=== PATIENT | male | born 1960 | race Caucasian/White ===

== ENCOUNTER 2018-10-18 09:33 | Inpatient (IN) | payer BC ==
[2018-10-18 11:41] LABS: Troponin I Less than 0.010 ng/mL (< 0.028)
[2018-10-18] MEDS ORDERED: Guaifenesin DM 100-10/5 ML UDCUP PO PRN (13:24)
[2018-10-18] MEDS ORDERED: Acetaminophen 325 MG TAB PO PRN (13:24)
[2018-10-18] MEDS ORDERED: Diltiazem 125 MG in Sodium Chloride 0.9% 100 ML IVPB SCH (13:30)
[2018-10-18] MEDS: Furosemide 40 MG/4 ML VIAL SLOW IVP SCH (13:56)
[2018-10-18 14:02] LABS: Troponin I Less than 0.010 ng/mL (< 0.028)
[2018-10-18 14:03] VITALS: BMI 44.1
[2018-10-18 14:26] LABS: Hemoglobin A1c 5.3 % (4.0-6.0)
[2018-10-18 14:27] LABS: INR-International Normal Ratio 1.2; Prothrombin Time 15.1 SEC (12.0-14.7)
[2018-10-18 15:22] LABS: Folate (Folic Acid) 10.5 ng/mL (7.0-31.4)
[2018-10-18] MEDS ORDERED: Prevnar 13-Val Conj/PF 0.5 ML SYRINGE IM ONE (15:30)
--- NOTE | 2018-10-18 17:10 | HP ---
REASON FOR ADMISSION: Atrial fibrillation with rapid ventricular response, CHF exacerbation. HISTORY OF PRESENT ILLNESS: Patient gives history of shortness of breath from last Friday. He has been feeling bad. He initially thought it was a peanut allergy. He also has orthopnea. No complain ts of chest pain, palpitations or PND. He initially went to [facility] where he was fou nd to be in atrial fibrillation with RVR and was given 20 mg of Cardizem IV and was placed on a drip and transferred here. Patient never had cardiac workup before. No history of bleeding per rectum. He has some dry cough, but no expectoration. PAST MEDICAL AND SURGICAL HISTORY: Hypertension, obesity, GERD, no prior surgery. No cardiac workup . No prior colonoscopy. CURRENT MEDICATIONS: Patient is on aspirin 81 mg p.o. daily, lisinopril 20 mg daily, metoprolol 100 mg twice daily, Prilosec 20 mg p.r.n. ALLERGIES: CODEINE, likely PEANUT. PERSONAL HISTORY: Dips snuff. Drinks 4-5 beers on a daily basis. Does not abuse drugs. Lives with his . FAMILY HISTORY: Mother at the age of 68 years. She has had history of throat cancer. Father d ied at the age of 73 years. He has had history of lung cancer, both were smokers. CODE STATUS: FULL. 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 REVIEW OF SYSTEMS: The following complete review of systems was negative, unless otherwise mentioned in the HPI or below: Constitutional: Weight loss or gain, ability to conduct usual activities. Sk in: Rash, itching. Eyes: Double vision, pain. ENT/Mouth: Nose bleeding, neck stiffness, pain, te nderness. Cardiovascular: Palpitations, dyspnea on exertion, orthopnea. Respiratory: Shortness of breath, wheezing, cough, hemoptysis, fever or night sweats. Gastrointestinal: Poor appetite, abdom inal pain, heartburn, nausea, vomiting, constipation, or diarrhea. Genitourinary: Urgency, frequenc y, dysuria, nocturia. Musculoskeletal: Pain, swelling. Neurologic/Psychiatric: Anxiety, depressio n. Allergy/Immunologic: Skin rash, bleeding tendency. PHYSICAL EXAMINATION: GENERAL: The patient is a 58-year-old male who is currently not in any acute distress. VITAL SIGNS: Blood pressure 112/80, pulse is 100 per minute, respiratory rate is 20 per minute, temp erature 97.7 degrees Fahrenheit, saturating 95% on room air. NECK: Supple, no elevated JVD. HEENT: Extraocular muscles intact. Pupils reacting to light. Oral cavity, mucous membranes are khoi st. No exudates or congestion. CARDIOVASCULAR: S1, S2 heard. Irregular rhythm. RESPIRATORY: Air entry 1+ bilateral. Scattered rales plus in the infrascapular area. ABDOMEN: Soft, bowel sounds heard. No tenderness, rigidity or guarding. EXTREMITIES: There is chronic edema likely venous stasis edema which the patient states is not new. Peripheral pulses are 1+ bilateral, no ischemic ulcerations or gangrene. CENTRAL NERVOUS SYSTEM: No gross focal deficits noted. Patient is alert, awake, and oriented well. He is hard of hearing in the right ear. PSYCHIATRIC: The patient's mood is euthymic. No hallucinations or delusions. LABORATORY AND X-RAY FINDINGS: EKG done shows atrial fibrillation with RVR at 132 beats per minute. There are nonspecific ST-T wave changes. White count of 9, H&H 16 and 51, platelet count is 234, MC V is 95 with 65% neutrophils. D-dimer is 0.7. Electrolytes are stable, BUN 17, creatinine 1.25. Se rum glucose 121, AST 36, ALT 31, total bilirubin 0.8. CK-MB 1.4. Troponin x2 negative. Albumin is 4.0. BNP is 801. CT angio chest done shows no PE. There is pulmonary vascular congestion. CLINICAL IMPRESSION AND PLAN: Patient will be admitted to telemetry for atrial fibrillation with rap id ventricular response, new onset, new-onset congestive heart failure exacerbation. He is currently on Cardizem drip at 10 mg an hour and will continue the same for now. He will be on full dose aspir in along with home dose of Lopressor 100 mg twice daily. His lisinopril will be reduced to 2.5 mg da laura to accommodate for diuresis. Patient will be on Lasix 40 mg IV q.12 hours. Echo with 2D Doppler for LV function will be obtained. His serum glucose is 120 and we will obtain a HbA1c. We will con sult Dr. Cornejo, who is furnace combustion analyst for Cardiology. Patient has never had colonoscopy before and does not have any history of bleeding per rectum. We will obtain a PT, INR and PTT for baseline if patient we re to go on anticoagulation.
[2018-10-18] MEDS: Famotidine 20 MG TAB PO SCH (20:58)
[2018-10-18] MEDS: Metoprolol Tartrate 100 MG TAB PO SCH (20:58)
--- NOTE | 2018-10-18 23:14 | CON ---
DATE OF CONSULTATION: 10/18/2018 DATE OF ADMISSION: 10/18/2018 INDICATION FOR CONSULTATION: A 58-year-old patient with new-onset atrial fibrillation, congestive heart failure symptoms. HISTORY OF PRESENT ILLNESS: This is a very pleasant 58-year-old gentleman who has had no previous cardiac history, has been very healthy patient despite being morbidly obese. He remains very active. He does have a history of hypertension, but no history of hypercholesterolemia, diabetes, or tobacco abuse. He has no early family history of heart disease in his family. He has been short of breath since Friday. 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 He does have orthopnea, he sleeps on 2 pillows. He had an echocardiogram today, which showed ejection fraction to be well preserved. Ejection fraction was 50% to 55%. The left atrium is at least moderately-to- severely dilated. The left atrium was up to, I believe, 4.97. He had trace TR and mild MR. There is a consideration of possible diastolic dysfunction, but difficult to assess with the atrial fibrillation. His CHADS-VASc2 score is equal to about 2. If one considers the congestive heart failure, which appears to be new onset. His chest x-ray did show some indication that he may have some congestive heart failure, but when he arrived to the emergency room, he was having atrial fibrillation with rapid ventricular response, which may have exacerbated or may have provoked him to have congestive heart failure. Otherwise, his only score would be 1 based on his hypertension. PAST MEDICAL HISTORY: Otherwise unremarkable. He denied any chest pain. He does have occasional indigestion, for which he takes Prilosec and he has hypertension. SOCIAL HISTORY: He has one child who is alive and well without heart disease. He is . He has no tobacco abuse. He drinks 4-5 beers a day and more on the weekend, also uses increased amounts of caffeine. FAMILY HISTORY: Both of his parents from throat or lung cancer. They were both smokers. ALLERGIES: He has some intolerance to CODEINE and he has possible allergy to PEANUTS. REVIEW OF SYSTEMS: Twelve-point review of systems unremarkable except for occasional edema of the feet. Otherwise, unremarkable except what was noted in the history of present illness. PHYSICAL EXAMINATION: GENERAL: Reveals an obese gentleman who weighs 317 pounds with a BMI of 44. VITAL SIGNS: His blood pressure earlier was 154/90, now is 123/69, heart rate is 109 and it occasionally drips down into the 90s. HEENT: Shows head to be normocephalic and atraumatic. Carotid pulses are present. I did not hear any bruits. CHEST: Clear to auscultation without rales, rhonchi, or wheezing. CARDIOVASCULAR: I did not hear any significant murmurs, heaves, thrills, bruits , or rubs. Heart sounds are somewhat distant may be due to the obesity of the patient, but appears to have no clear S1 or S2, but this is due to the atrial fibrillation with a regular rhythm. ABDOMEN: Shows morbid obesity. I cannot palpate any masses or tenderness. Femoral pulses are present. EXTREMITIES: Showed no clubbing or cyanosis. He had minimal perhaps 1+ edema of the lower extremities. Pedal pulses are present, but are somewhat decreased. EKG shows atrial fibrillation with rapid ventricular response, but no acute ST segment changes. As noted above, his echocardiogram shows a normal ejection fraction, but left atrium was 4.97. At this time, he is on Lasix and IV diltiazem and has been given Lovenox. IMPRESSION: 1. Atrial fibrillation with rapid ventricular response, which is may be a new- onset. We are uncertain as the duration of one just actually started, may discuss this case with Dr. Montez. If he has had any previous evaluations in the office recently or had an EKG that would verify perhaps sinus rhythm. At this time, we will continue the diltiazem, we will need to try to speak an etiology of the atrial fibrillation. I have discussed this with the patient, it could be due to increased alcohol use, increased caffeine, occasionally he may have sleep apnea which could have provoked this also. Increased stress or fatigue may also cause atrial fibrillation, most likely is due to his increased alcohol use. He drinks at least 4-5 beers per day. 2. Obesity. He and his are both need to undergo diet restrictions and he agrees to do this. 3. History of hypertension. I will need to readjust his medications. I would agree with the beta blockers and MARY inhibitors in this gentleman. 4. Elevated blood sugar. His laboratory data show blood sugar of 121; however , hemoglobin A1c was normal. 5. Mild congestive heart failure. He has been given IV Lasix, and I suspect he will diurese. We will have no further issues as long as we can control the heart rate and the blood pressure. 6. ETOH abuse and he has been advised to cut back on his alcohol use. 7. Possible sleep apnea. He may need to undergo a sleep study as an outpatient and if so, then a CPAP mask would be in order. At this time, we will continue the medication and see how he is tomorrow. He will need to undergo some type of stress testing either as an inpatient or later, but first we will need to control the heart rate as well as the blood pressure. We will discuss his case also with building contractor, he may be a candidate to undergo ablation of the atrial fibrillation. JUANJO
[2018-10-19] MEDS: Furosemide 40 MG/4 ML VIAL SLOW IVP SCH ×2 (05:17→18:35)
[2018-10-19 05:51] LABS: Anion Gap 15 mmol/L (10-20); BUN (Urea Nitrogen) 18 mg/dL (8.4-25.7); Calc. Creatinine Clearance 167 mL/min (70-130); Calcium 9.2 mg/dL (7.8-10.44); Carbon Dioxide 25 mmol/L (22-29); Chloride 99 mmol/L (98-107); Estimated GFR-MDRD 82; Glucose 103 mg/dL (70-105); Sodium 135 mmol/L (136-145)
[2018-10-19 06:12] LABS: Hemoglobin 15.2 g/dL (14.0-18.0); Lymphocytes 33 % (21-51); MDiff Complete? YES; Mean Corpuscular HGB CONC 32.9 g/dL (32.0-36.0); Mean Corpuscular Hemoglobin 31.4 pg (27.0-31.0); Mean Corpuscular Volume 95.2 fL (78.0-98.0); Mean Platelet Volume 9.1 fL (7.4-10.4); Monocytes 11 % (0-10); Neutrophil 56 % (42-75); PLT Morphology Comment Appears Adequate; Platelet Count 194 thou/uL (130-400); RBC Distribution Width 12.3 % (11.5-14.5); RBC Morphology Normal; Red Blood Cell (RBC) Count 4.85 mill/uL (4.70-6.10); White Blood Cell (WBC) Count 5.7 thou/uL (4.8-10.8)
[2018-10-19] MEDS ORDERED: Aspirin 325 MG TAB PO SCH (09:00)
[2018-10-19] MEDS ORDERED: Enoxaparin Sodium 40 MG/0.4 ML SYRINGE SC SCH (09:00)
[2018-10-19] MEDS ORDERED: Lisinopril 2.5 MG TAB PO SCH (09:00)
[2018-10-19] MEDS: Lisinopril 20 MG TAB PO SCH (09:37)
[2018-10-19] MEDS: Metoprolol Tartrate 100 MG TAB PO SCH ×2 (09:38→20:49)
[2018-10-19] MEDS: Famotidine 20 MG TAB PO SCH ×2 (09:38→20:48)
--- NOTE | 2018-10-19 11:12 | CON ---
DATE OF CONSULTATION: 10/19/2018 REFERRING PHYSICIAN: Dr. Lolita Cornejo REASON FOR CONSULTATION: New onset atrial fibrillation with rapid ventricular response. HISTORY OF PRESENT ILLNESS: Mr. Arriola is a very pleasant 58-year-old gentleman who recently presented to the emergency room at [facility] and was found to be in atrial fibrillation with RVR. He has been having shortness of breath since Friday. Otherwise, he has a fairly unremarkable past medical history. He is being treated for hypertension, but denies any prior history of diabetes, tobacco use, cholesterol issues. He is morbidly obese, but continues to lead a very active lifestyle and works part time flexible clerk. He has no history of heart failure, but was found to be in mild congestive heart failure upon presentation, likely tachycardia mediated. His ejection fraction is preserved at 50-55%, but the left atrium shows moderate to severe dilation. Since he was admitted Cardiology was consulted and he was placed on a diltiazem drip for rate control with good success. Currently, Mr. Arriola is feeling well. He denies any heart racing, palpitations, chest pain or pressure, syncope, near syncope, stroke, stroke- like symptoms. His shortness of breath is relieved with his rate control. Otherwise, he is feeling well today. PAST MEDICAL HISTORY: 1. Hypertension. 2. Dyspepsia. 3. Alcohol consumption, borderline alcohol abuse. 4. Morbid obesity. REVIEW OF SYSTEMS: A 12-point review of systems was conducted and is otherwise unremarkable except that listed above in the HPI. HOME MEDICATIONS: Toprol-XL 100 mg p.o. daily and lisinopril 20 mg p.o. daily. SOCIAL HISTORY: , has 1 child. Denies tobacco or drug use. Positive for alcohol consumption of 4-5 beers a day during the week with higher levels on the weekend. FAMILY HISTORY: Both parents passed from throat or lung cancer and both smoked. Negative for sudden cardiac or early onset coronary artery disease. ALLERGIES: Possible allergy to PEANUTS, intolerant of CODEINE. OBJECTIVE: VITAL SIGNS: Temperature 98.3, pulse 72, blood pressure 129/79, respirations 16 , oxygen is 95% on room air. GENERAL: Mr. Arriola is well groomed, morbidly obese, alert, and oriented. Speech is clear. Affect is appropriate. BMI of 44. HEENT: Normocephalic, atraumatic. NECK: Thyroid is nonpalpable. Jugular venous distention is difficult to assess with his habitus. PULMONARY: Lungs are clear to auscultation bilaterally without wheezes, crackles or rhonchi. Respirations are even and unlabored with good bilateral excursion. CARDIOVASCULAR: Heart rate is irregularly irregular, but with a controlled rate. No significant murmur, rubs or gallops are appreciated. GASTROINTESTINAL: The abdomen is soft, nontender, morbidly obese. There are no palpable masses. Hepatojugular reflex is negative. EXTREMITIES: Warm and dry to touch without clubbing or cyanosis. Trace bilateral edema seen. NEUROLOGIC: Grossly intact. Cranial nerves II-XII nonfocal. Gait was not assessed. DATABASE: EKG and telemetry were all personally reviewed and reflect currently atrial fibrillation with controlled ventricular rates between 70 and 100. Initial presenting EKG is an atypical atrial flutter, mostly with 2:1 AV conduction, but variable at times. Ventricular rate is 132 beats per minute. Echocardiogram: EF 50-55%, probable diastolic dysfunction, moderate to severely dilated left atrium. Hematology is reviewed and unremarkable. Chemistry is reviewed and is unremarkable. Creatinine is 0.94. TSH 1.7. IMPRESSION: 1. Newly diagnosed atrial fibrillation with rapid ventricular rate. 2. Morbid obesity with a BMI of 44. 3. High level of alcohol intake. 4. Morbid obesity. 5. CHADS-VASc score of 1 (2 if his tachycardia mediated congestive heart failure is included in his score which should resolve with rate control and gentle diuresing). 6. Hypertension. ASSESSMENT AND PLAN: Mr. Arriola presents with newly found atrial arrhythmias with rapid ventricular response. This is likely multifactorial as he has many risk factors present that are unknown provoking factors of atrial fibrillation. He is morbidly obese. He suffers from moderate to poorly controlled high blood pressure, and also likely has undiagnosed sleep apnea. On top of that, his alcohol consumption is quite high, which is also a known provoking factor of cardiac arrhythmias. At this point, I recommend a short course of oral anticoagulation until the DEWAYNE and cardioversion is done. An outpatient monitor could be given to assess for subclinical atrial fibrillation. With a CHADS VAS score of 1 only aspirin would be required once sinus rhythm is restored. Recommend rate control strategy now with AV jayden blocking agents and consider antiarrhythmic therapy versus a PVAI if recurrence is seen. Most importantly, though will be lifestyle modifications for him. Weight loss would be imperative for him and helping control any future atrial arrhythmias. We agree with the recommendation to undergo sleep study for undiagnosed sleep apnea and also a tight control of his high blood pressure. Thank you for allowing us to participate in the care of this patient. JUANJO
--- NOTE | 2018-10-19 11:51 | PDOC.CTH ---
<Meli Beltran - Last Filed: 10/19/18 11:49> Cardiology Progress Note - Subjective The pt seen and examined. No overnight events. No cardiac complaints. - Objective Vital Signs Temp Pulse Pulse Pulse Resp BP BP 10/19/18 10:34 91 93 123/72 156/96 H 10/19/18 07:10 98.3 F 72 16 10/19/18 04:15 10/19/18 03:50 97.3 F L 94 16 10/19/18 00:15 98.1 F 79 16 BP BP Pulse Ox 10/19/18 10:34 10/19/18 07:10 129/79 95 10/19/18 04:15 96 10/19/18 03:50 113/64 96 10/19/18 00:15 119/76 95 Weight 311 lb 14.4 oz 10/18/18 10/19/18 10/20/18 06:59 06:59 06:59 Intake Total 1370 Output Total 2650 Balance -1280 - Physical Examination General/Neuro: alert & oriented x3 Neck: no JVD present Lungs: CTA Heart: other: (irregular) Abdomen: soft Extremities: other: (2+ pitting edema with discoloration) - Labs Result Diagrams: 10/19/18 05:03 10/19/18 05:03 Troponin/CKMB Troponin I Less than 0.010 ng/mL (< 0.028) 10/18/18 13:28 - Assessment/Plan 1. New on set AFib with RVR - HR well controlled with Cardizem 10mg/h, Metoprolol and ASA 325mg qd; Plan for DEWAYNE/Cardioversion today by Dr Cornejo. 2. New on set of Diastloic HF - Echo on 10/18/18 showed EF 50-55%, Diastolic dysfunction, mod dilated LA, mild ERA, mild MR, trace TR; On Lisinopril, Metoprolol and Lasix IV 40mg BID 3. HTN - stable 4. GERD - stable 5. Obese - weight management with diet and regular exercise education given to the pt and family 6. ETOH abuse (4-6 beers/day) - ETOH cessation education given to the pt and family 7. Tobacco abuse with dipping - Tobacco cessation education given to the pt and family * Plan for DEWAYNE/DCCV today by Dr Cornejo. Review of Systems - Review of Systems Constitutional: reports: no symptoms reported EENTM: reports: no symptoms reported Respiratory: reports: no symptoms reported Cardiac (ROS): reports: no symptoms reported ABD/GI: reports: no symptoms reported : reports: no symptoms reported Musculoskeletal: reports: no symptoms reported <Bladimir Cornejo - Last Filed: 10/19/18 16:47> Cardiology Progress Note - Objective Vital Signs Temp Pulse Pulse Pulse Resp BP BP 10/19/18 11:57 98.1 F 74 18 10/19/18 10:34 91 93 123/72 156/96 H 10/19/18 07:10 98.3 F 72 16 BP Pulse Ox 10/19/18 11:57 130/85 95 10/19/18 10:34 10/19/18 07:10 129/79 95 Weight 311 lb 14.4 oz 10/18/18 10/19/18 10/20/18 06:59 06:59 06:59 Intake Total 1370 Output Total 2650 Balance -1280 - Labs Result Diagrams: 10/19/18 05:03 10/19/18 05:03 Troponin/CKMB Troponin I Less than 0.010 ng/mL (< 0.028) 10/18/18 13:28 - Assessment/Plan Pt. seen and eval. by me. Discussed his case with EP. Plan for DEWAYNE/ cardioversion if no YUSEF thrombus is present.
--- NOTE | 2018-10-19 12:19 | PDOC.PN ---
- Subjective Encounter Start Date: 10/19/18 Encounter Start Time: 09:40 Subjective: no sob or chest pain -: feels better -: and son at bedside - Objective Resuscitation Status: Resuscitation Status FULL:Full Resuscitation MAR Reviewed: Yes Vital Signs & Weight: Vital Signs (12 hours) Temp Pulse Pulse Pulse Resp BP BP 10/19/18 11:57 98.1 F 74 18 10/19/18 10:34 91 93 123/72 156/96 H 10/19/18 07:10 98.3 F 72 16 10/19/18 04:15 10/19/18 03:50 97.3 F L 94 16 BP BP Pulse Ox 10/19/18 11:57 130/85 95 10/19/18 10:34 10/19/18 07:10 129/79 95 10/19/18 04:15 96 10/19/18 03:50 113/64 96 Weight Weight 311 lb 14.4 oz I&O: 10/18/18 10/19/18 10/20/18 06:59 06:59 06:59 Intake Total 1370 Output Total 2650 Balance -1280 Result Diagrams: 10/19/18 05:03 10/19/18 05:03 Phys Exam - Physical Examination HEENT: PERRLA, moist MMs Neck: no JVD, supple Respiratory: no wheezing, no rales Cardiovascular: no significant murmur, irregular Gastrointestinal: soft, non-tender, positive bowel sounds Musculoskeletal: pulses present, edema present Neurological: non-focal, moves all 4 limbs Psychiatric: normal affect, A&O x 3 Dx/Plan (1) Atrial fibrillation with RVR Code(s): I48.91 - UNSPECIFIED ATRIAL FIBRILLATION Status: Acute (2) Acute exacerbation of CHF (congestive heart failure) Code(s): I50.9 - HEART FAILURE, UNSPECIFIED Status: Acute Qualifiers: Heart failure type: diastolic Qualified Code(s): I50.33 - Acute on chronic diastolic (congestive) heart failure Comment: ef of 55%, NYHA class 2 (3) HTN (hypertension) Code(s): I10 - ESSENTIAL (PRIMARY) HYPERTENSION Status: Chronic Qualifiers: Hypertension type: essential hypertension Qualified Code(s): I10 - Essential (primary) hypertension (4) Obesity Code(s): E66.9 - OBESITY, UNSPECIFIED Status: Chronic Qualifiers: Obesity classification: adult class 3 (BMI >= 40) Body mass index: BMI 40.0 -44.9 (5) Alcohol abuse Code(s): F10.10 - ALCOHOL ABUSE, UNCOMPLICATED Status: Chronic - Plan is on cardizem drip @10mg/hr -: lopressor 100mg bid, asp -: plan is for cardioversion and DEWAYNE today, is npo -: d/w , son and patient at bedside -: ef of 55% with diastolic dysfunction, LE edema is better * . Review of Systems - Medications/Allergies Allergies/Adverse Reactions: Allergies Allergy/AdvReac Type Severity Reaction Status Date / Time codeine Allergy Intermediate Verified 10/18/18 14:27 Medications: Current Medications Acetaminophen (Tylenol) 650 mg PO Q4H PRN PRN Reason: Headache/Fever/Mild Pain (1-3) Aspirin (Aspirin) 325 mg PO DAILY [facility] Enoxaparin Sodium (Lovenox) 40 mg SC 0900 [facility] Famotidine (Pepcid) 20 mg PO BID [facility] Last Admin: 10/19/18 09:38 Dose: 20 mg Furosemide (Lasix) 40 mg SLOW IVP 0600,1400 [facility] Last Admin: 10/19/18 05:17 Dose: 40 mg Guaifenesin/Dextromethorphan (Robitussin Dm) 15 ml PO Q4H PRN PRN Reason: Cough Diltiazem HCl 125 mg/ Sodium (Chloride) 125 mls @ 10 mls/hr IVPB INF [facility]; Protocol Last Admin: 10/19/18 04:14 Dose: 125 mls Lisinopril (Zestril) 20 mg PO DAILY [facility] Last Admin: 10/19/18 09:37 Dose: 20 mg Metoprolol Tartrate (Lopressor) 100 mg PO BID [facility] Last Admin: 10/19/18 09:38 Dose: 100 mg Sodium Chloride (Flush - Normal Saline) 10 ml IVF PRN PRN PRN Reason: Saline Flush Last Admin: 10/19/18 05:20 Dose: 10 ml
[2018-10-19] MEDS ORDERED: PROPOFOL 200 MG/20 ML VIAL ONE (13:46)
[2018-10-19] MEDS ORDERED: PROPOFOL 20 ML ONE (16:55)
[2018-10-19] MEDS ORDERED: Atropine Sulfate 1 mg/10 ml Syringe ONE (16:55)
[2018-10-19] MEDS ORDERED: Midazolam HCl 2 mg/2 ml Vial ONE (17:02)
[2018-10-19] MEDS: Apixaban 5 MG TAB PO SCH (20:48)
[2018-10-19] MEDS ORDERED: Diltiazem HCl 125 MG, Admixture Fee 1 EACH in Sodium Chloride 0.9% 100 ML IVPB SCH (23:45)
[2018-10-20] MEDS: Furosemide 40 MG/4 ML VIAL SLOW IVP SCH (05:37)
[2018-10-20 05:38] LABS: Anion Gap 16 mmol/L (10-20); BUN (Urea Nitrogen) 17 mg/dL (8.4-25.7); Calc. Creatinine Clearance 157 mL/min (70-130); Calcium 9.5 mg/dL (7.8-10.44); Carbon Dioxide 26 mmol/L (22-29); Cardiac Risk 4.7 (Less than 4.5); Chloride 99 mmol/L (98-107); Cholesterol 127 mg/dl (< 200 Desired); Estimated GFR-MDRD 76; Glucose 104 mg/dL (70-105); HDL Cholesterol 27 mg/dL (>60 Neg Risk); LDL Cholesterol, Calculated 84 mg/dL; Sodium 137 mmol/L (136-145); Triglycerides 78 mg/dL (Less than 150)
[2018-10-20 05:45] LABS: Hemoglobin 15.2 g/dL (14.0-18.0); Mean Corpuscular HGB CONC 33.1 g/dL (32.0-36.0); Mean Corpuscular Hemoglobin 31.4 pg (27.0-31.0); Mean Platelet Volume 8.8 fL (7.4-10.4); Platelet Count 219 thou/uL (130-400); RBC Distribution Width 12.1 % (11.5-14.5); Red Blood Cell (RBC) Count 4.84 mill/uL (4.70-6.10); White Blood Cell (WBC) Count 5.5 thou/uL (4.8-10.8)
[2018-10-20 05:46] LABS: Band 2 % (5-11); Lymphocytes 29 % (21-51); MDiff Complete? YES; Monocytes 14 % (0-10); Neutrophil 53 % (42-75); PLT Morphology Comment Appears Adequate
[2018-10-20] MEDS: Apixaban 5 MG TAB PO SCH ×2 (09:17→21:00)
[2018-10-20] MEDS: Metoprolol Tartrate 100 MG TAB PO SCH ×2 (09:17→21:00)
[2018-10-20] MEDS: Famotidine 20 MG TAB PO SCH ×2 (09:17→21:00)
[2018-10-20] MEDS: Lisinopril 20 MG TAB PO SCH (09:17)
[2018-10-20] MEDS ORDERED: Diltiazem HCl 125 MG, Admixture Fee 1 EACH in Sodium Chloride 0.9% 100 ML IVPB SCH (09:38)
--- NOTE | 2018-10-20 11:30 | PDOC.PN ---
- Subjective Encounter Start Date: 10/20/18 Encounter Start Time: 09:20 Subjective: no sob/chest pain or palp -: is on cardizem drip - Objective Resuscitation Status: Resuscitation Status FULL:Full Resuscitation MAR Reviewed: Yes Vital Signs & Weight: Vital Signs (12 hours) Temp Pulse Resp BP BP BP BP 10/20/18 09:17 136/103 H 10/20/18 07:40 97.6 F 110 H 18 134/96 H 10/20/18 03:00 97.6 F 101 H 17 138/91 H 10/20/18 00:00 120 H 18 143/98 H Pulse Ox 10/20/18 09:17 10/20/18 07:40 95 10/20/18 03:00 93 L 10/20/18 00:00 95 Weight Weight 311 lb I&O: 10/19/18 10/20/18 10/21/18 06:59 06:59 06:59 Intake Total 1370 900 Output Total 2650 1050 Balance -1280 -150 Result Diagrams: 10/20/18 04:57 10/20/18 04:57 Phys Exam - Physical Examination HEENT: PERRLA, moist MMs Neck: no JVD, supple Respiratory: no wheezing, no rales Cardiovascular: no significant murmur, irregular Gastrointestinal: soft, positive bowel sounds Musculoskeletal: no edema, pulses present Neurological: non-focal, moves all 4 limbs Psychiatric: normal affect, A&O x 3 Dx/Plan (1) Atrial fibrillation with RVR Code(s): I48.91 - UNSPECIFIED ATRIAL FIBRILLATION Status: Acute (2) Acute exacerbation of CHF (congestive heart failure) Code(s): I50.9 - HEART FAILURE, UNSPECIFIED Status: Acute Qualifiers: Heart failure type: diastolic Qualified Code(s): I50.33 - Acute on chronic diastolic (congestive) heart failure Comment: ef of 55%, NYHA class 2 (3) HTN (hypertension) Code(s): I10 - ESSENTIAL (PRIMARY) HYPERTENSION Status: Chronic Qualifiers: Hypertension type: essential hypertension Qualified Code(s): I10 - Essential (primary) hypertension (4) Obesity Code(s): E66.9 - OBESITY, UNSPECIFIED Status: Chronic Qualifiers: Obesity classification: adult class 3 (BMI >= 40) Body mass index: BMI 40.0 -44.9 (5) Alcohol abuse Code(s): F10.10 - ALCOHOL ABUSE, UNCOMPLICATED Status: Chronic - Plan is back on cardizem drip -: was in sinus rhythm for 2hrs post cardioversion then reverted back to afib -: will likely need ablation -: is on high dose lopressor, flecainide and eliquis -: gave updates to at bedside * . Review of Systems - Medications/Allergies Allergies/Adverse Reactions: Allergies Allergy/AdvReac Type Severity Reaction Status Date / Time codeine Allergy Intermediate Verified 10/18/18 14:27 Medications: Current Medications Acetaminophen (Tylenol) 650 mg PO Q4H PRN PRN Reason: Headache/Fever/Mild Pain (1-3) Apixaban (Eliquis) 5 mg PO BID [facility] Last Admin: 10/20/18 09:17 Dose: 5 mg Famotidine (Pepcid) 20 mg PO BID [facility] Last Admin: 10/20/18 09:17 Dose: 20 mg Flecainide Acetate (Tambocor) 50 mg PO Q12HR [facility] Furosemide (Lasix) 40 mg PO 0900,1400 [facility] Guaifenesin/Dextromethorphan (Robitussin Dm) 15 ml PO Q4H PRN PRN Reason: Cough Diltiazem HCl 125 mg/Miscellaneous Medication 1 each/ Sodium Chloride 125 mls @ 7.5 mls/hr IVPB INF [facility]; Protocol Lisinopril (Zestril) 20 mg PO DAILY [facility] Last Admin: 10/20/18 09:17 Dose: 20 mg Metoprolol Tartrate (Lopressor) 100 mg PO BID [facility] Last Admin: 10/20/18 09:17 Dose: 100 mg Sodium Chloride (Flush - Normal Saline) 10 ml IVF PRN PRN PRN Reason: Saline Flush Last Admin: 10/20/18 09:17 Dose: 10 ml
--- NOTE | 2018-10-20 12:18 | PDOC.CTH ---
Cardiology Progress Note - Subjective The pt seen and examined. No overnight events. No cardiac complaints. His HR was converted back to Afib around 0100 today. The pt is asymptomatic and denied dizziness or SOB. - Objective Vital Signs Temp Pulse Resp BP BP BP Pulse Ox 10/20/18 09:17 136/103 H 10/20/18 07:40 97.6 F 110 H 18 134/96 H 95 10/20/18 03:00 97.6 F 101 H 17 138/91 H 93 L Weight 311 lb 10/19/18 10/20/18 10/21/18 06:59 06:59 06:59 Intake Total 1370 900 Output Total 2650 1050 Balance -1280 -150 - Physical Examination General/Neuro: alert & oriented x3 Neck: no JVD present Lungs: other: (diminished at bases) Heart: other: (irregular) Abdomen: soft Extremities: other: (No edema) - Telemetry Telemetry Rhythm: Afib 90-130s - Labs Result Diagrams: 10/20/18 04:57 10/20/18 04:57 Troponin/CKMB Troponin I Less than 0.010 ng/mL (< 0.028) 10/18/18 13:28 - Assessment/Plan 1. New on set AFib with RVR and s/p DEWAYNE and DCCV on 10/19/18 - converted back to Afib around 0100 on 10/20/18 and Cardizem IV 5 mg/h was resumed. On Metoprolol and Eliquis 5mg BID. Flecainide 50mg BID from today. 2. New on set of Diastloic HF - Echo on 10/18/18 showed EF 50-55%, Diastolic dysfunction, mod dilated LA, mild ERA, mild MR, trace TR; On Lisinopril, Metoprolol and Lasix IV 40mg BID, which changed to PO. 3. HTN - stable 4. GERD - stable 5. Obese - weight management with diet and regular exercise education given to the pt and family 6. ETOH abuse (4-6 beers/day) - ETOH cessation education given to the pt and family 7. Tobacco abuse with dipping - Tobacco cessation education given to the pt and family Review of Systems - Review of Systems Constitutional: reports: no symptoms reported EENTM: reports: no symptoms reported Respiratory: reports: no symptoms reported Cardiac (ROS): reports: no symptoms reported ABD/GI: reports: no symptoms reported : reports: no symptoms reported Musculoskeletal: reports: no symptoms reported
--- NOTE | 2018-10-20 14:47 | PDOC.CTH ---
Cardiology Progress Note - Subjective EP progress note: Patient feels well but cannot sleep in the hospital so he is quite eager to go home. SR after CV yesterday but converted to AF ~0100. back on Dilt gtt. - Objective Vital Signs Temp Pulse Resp BP BP BP Pulse Ox 10/20/18 11:12 97.8 F 113 H 20 124/78 10/20/18 09:17 136/103 H 10/20/18 07:40 97.6 F 110 H 18 134/96 H 95 10/20/18 03:00 97.6 F 101 H 17 138/91 H 93 L Weight 311 lb 10/19/18 10/20/18 10/21/18 06:59 06:59 06:59 Intake Total 1370 900 Output Total 2650 1050 Balance -1280 -150 - Physical Examination General/Neuro: alert & oriented x3, NAD Neck: carotid US brisk, no JVD present Lungs: CTA, unlabored respirations Heart: PMI normal Abdomen: NT/ND, soft - Telemetry Telemetry Rhythm: AF - Labs Result Diagrams: 10/20/18 04:57 10/20/18 04:57 Troponin/CKMB Troponin I Less than 0.010 ng/mL (< 0.028) 10/18/18 13:28 - Assessment/Plan 1. Atrial fibrillation with RVR - DCCV 10/19 temporarily restored SR. Back in AF with RVR - Started flecainide 100mg PO BID 2. CHADS2-VASC of 1 - On eliquis for now. 3. Hypertension 4. Morbid obesity 5. Alcohol abuse 4-5 beers daily during the week, great on weekends. -recommended stopping alcohol Discussed treatment plan and options at length with pt and his . Will use flecainide for now unless CAD is found. Can consider DCCV or Friday if does not spontaneously convert. Continue Eliquis.
[2018-10-20] MEDS: Furosemide 40 MG TAB PO SCH (15:05)
[2018-10-20] MEDS ORDERED: Flecainide 50 MG TAB PO SCH (21:00)
[2018-10-20] MEDS: Flecainide 50 MG TAB PO SCH (21:00)
--- NOTE | 2018-10-20 22:27 | OP ---
DATE OF PROCEDURE: 10/19/18 INDICATION FOR PROCEDURE: Atrial fibrillation with rapid ventricular response. After the patient had a transesophageal echocardiogram performed. There was no left atrial or left atrial appendage thrombus. He underwent electrical cardioversion of his atrial fibrillation with one attempt at 300 joules. He has been given short acting propofol for both the transesophageal echocardiogram as well as electrical cardioversion. This was performed without difficulties or complications. With one attempt at 300 joules he was successfully converted back to a normal sinus rhythm with a heart rate in the 60s without difficulties or complications. Blood pressure was 97/64, O2 saturations are stable. MTDD
--- NOTE | 2018-10-20 22:27 | ECHO ---
DATE OF PROCEDURE: 10/19/18 INDICATION FOR PROCEDURE: This is a 58-year-old patient with what is felt to be relatively new onset atrial fibrillation, which has been symptomatic with rapid ventricular response. He was advised to undergo the transesophageal echocardiogram and possible cardioversion. He was taken to the recovery area where he underwent a transesophageal echocardiogram without difficu lties or complications. The impressions on the echocardiogram are as follows 1. Normal left ventricular size, function, ejection fraction at least 55%. 2. Left atrial dilatation, approximately 5.0 cm. The flow in the left atrial appendage of 3-4 meter s per second. There was smoke in the left atrium. 3. Mild tricuspid valve regurgitation. 4. Mild to moderate mitral valve regurgitation. 5. No evidence of left atrial or left atrial appendage thrombus.
[2018-10-21 06:19] LABS: Anion Gap 15 mmol/L (10-20); BUN (Urea Nitrogen) 18 mg/dL (8.4-25.7); Calc. Creatinine Clearance 143 mL/min (70-130); Calcium 9.4 mg/dL (7.8-10.44); Carbon Dioxide 25 mmol/L (22-29); Chloride 100 mmol/L (98-107); Estimated GFR-MDRD 70; Glucose 102 mg/dL (70-105); Potassium 4.2 mmol/L (3.5-5.1); Sodium 136 mmol/L (136-145)
--- NOTE | 2018-10-21 08:43 | PDOC.CTH ---
<Meli Beltran - Last Filed: 10/21/18 08:41> Cardiology Progress Note - Subjective The pt seen and examined. No overnight events. No cardiac complaints. He denied SOB or other cardiac complaints when he walked around the floor. - Objective Vital Signs Temp Pulse Resp BP Pulse Ox 10/21/18 08:00 98.3 F 63 18 162/93 H 96 10/21/18 03:19 96.8 F L 107 H 19 150/77 H 95 10/21/18 02:45 94 L Weight 306 lb 10/20/18 10/21/18 10/22/18 06:59 06:59 06:59 Intake Total 900 940 Output Total 1050 2400 Balance -150 -1460 - Physical Examination General/Neuro: alert & oriented x3 Neck: no JVD present Lungs: CTA Heart: other: (irregular) Abdomen: soft Extremities: other: (1-2+ pitting BLE edema) - Telemetry Telemetry Rhythm: AFib 90-120s - Labs Result Diagrams: 10/20/18 04:57 10/21/18 05:23 Troponin/CKMB Troponin I Less than 0.010 ng/mL (< 0.028) 10/18/18 13:28 - Assessment/Plan 1. New on set AFib with RVR and s/p DEWAYNE and DCCV on 10/19/18 and converted back to Afib around 0100 on 10/20/18 - Flecaindie 100mg BID was started from last night. On Cardizem IV 7.5 mg/h, which will increase to 10mg/h. On Metoprolol and Eliquis 5mg BID. 2. New on set of Diastloic HF - Echo on 10/18/18 showed EF 50-55%, Diastolic dysfunction, mod dilated LA, mild ERA, mild MR, trace TR; On Lisinopril, Metoprolol and Lasix IV 40mg PO. 3. HTN - stable 4. GERD - stable 5. Obese - weight management with diet and regular exercise education given to the pt and family 6. ETOH abuse (4-6 beers/day) - ETOH cessation education given to the pt and family 7. Tobacco abuse with dipping - Tobacco cessation education given to the pt and family Review of Systems - Review of Systems Constitutional: reports: no symptoms reported EENTM: reports: no symptoms reported Respiratory: reports: no symptoms reported Cardiac (ROS): reports: no symptoms reported ABD/GI: reports: no symptoms reported : reports: no symptoms reported Musculoskeletal: reports: no symptoms reported Skin: reports: no symptoms reported <Bladimir Cornejo - Last Filed: 10/21/18 17:25> Cardiology Progress Note - Objective Vital Signs Temp Pulse Resp BP BP Pulse Ox 10/21/18 16:00 98.2 F 50 L 18 118/82 96 10/21/18 12:02 136/103 H 10/21/18 12:00 96.1 F L 120 H 17 120/63 95 10/21/18 08:00 98.3 F 63 18 162/93 H 96 Weight 306 lb 10/20/18 10/21/18 10/22/18 06:59 06:59 06:59 Intake Total 900 940 640 Output Total 1050 2400 400 Balance -150 -1460 240 - Labs Result Diagrams: 10/20/18 04:57 10/21/18 05:23 Troponin/CKMB Troponin I Less than 0.010 ng/mL (< 0.028) 10/18/18 13:28 - Assessment/Plan Pt. seen and eval. by me. As above,he was cardioverted but then returned to atrial fib. The Flecainide was increased and this afternoon around 4pm he converted to sinus rhythm. Otherwise I agree with the A/P by the BANKRUPTCY JUDGE. If he remains stable then could d/c to home on the present meds and I can see him back in the office next week the stress test was negative for ischemia but the EF was decreased, 39%, EF by DEWAYNE was 50-55%.
[2018-10-21] MEDS ORDERED: Diltiazem HCl 125 MG, Admixture Fee 1 EACH in Sodium Chloride 0.9% 100 ML IVPB SCH (09:04)
[2018-10-21] MEDS: Famotidine 20 MG TAB PO SCH ×2 (12:01→21:24)
[2018-10-21] MEDS: Apixaban 5 MG TAB PO SCH ×2 (12:01→21:24)
[2018-10-21] MEDS: Flecainide 50 MG TAB PO SCH ×2 (12:01→21:25)
[2018-10-21] MEDS: Furosemide 40 MG TAB PO SCH ×2 (12:02→14:07)
[2018-10-21] MEDS: Lisinopril 20 MG TAB PO SCH (12:02)
[2018-10-21] MEDS: Metoprolol Tartrate 100 MG TAB PO SCH ×2 (12:02→21:25)
--- NOTE | 2018-10-21 12:14 | PDOC.PN ---
- Subjective Encounter Start Date: 10/21/18 Encounter Start Time: 11:00 Subjective: no chest pain or palp -: getting stres test - Objective Resuscitation Status: Resuscitation Status FULL:Full Resuscitation MAR Reviewed: Yes Vital Signs & Weight: Vital Signs (12 hours) Temp Pulse Resp BP BP Pulse Ox 10/21/18 12:02 136/103 H 10/21/18 08:00 98.3 F 63 18 162/93 H 96 10/21/18 03:19 96.8 F L 107 H 19 150/77 H 95 10/21/18 02:45 94 L Weight Weight 306 lb I&O: 10/20/18 10/21/18 10/22/18 06:59 06:59 06:59 Intake Total 900 940 Output Total 1050 2400 Balance -150 -1460 Result Diagrams: 10/20/18 04:57 10/21/18 05:23 Phys Exam - Physical Examination HEENT: PERRLA, moist MMs Neck: no JVD, supple Respiratory: no wheezing, no rales Cardiovascular: no significant murmur, irregular Gastrointestinal: soft, non-tender, positive bowel sounds Musculoskeletal: no edema, pulses present Neurological: non-focal, moves all 4 limbs Psychiatric: normal affect, A&O x 3 Dx/Plan (1) Atrial fibrillation with RVR Code(s): I48.91 - UNSPECIFIED ATRIAL FIBRILLATION Status: Acute (2) Acute exacerbation of CHF (congestive heart failure) Code(s): I50.9 - HEART FAILURE, UNSPECIFIED Status: Acute Qualifiers: Heart failure type: diastolic Qualified Code(s): I50.33 - Acute on chronic diastolic (congestive) heart failure Comment: ef of 55%, NYHA class 2 (3) HTN (hypertension) Code(s): I10 - ESSENTIAL (PRIMARY) HYPERTENSION Status: Chronic Qualifiers: Hypertension type: essential hypertension Qualified Code(s): I10 - Essential (primary) hypertension (4) Obesity Code(s): E66.9 - OBESITY, UNSPECIFIED Status: Chronic Qualifiers: Obesity classification: adult class 3 (BMI >= 40) Body mass index: BMI 40.0 -44.9 (5) Alcohol abuse Code(s): F10.10 - ALCOHOL ABUSE, UNCOMPLICATED Status: Chronic - Plan await stress test results -: is on flecainide 100mg bid, lopressor 100 bid and cardizem drip -: asp, eliquis, lisinopril -: hemostable -: dc plan per Cardio/EP advice, likely will need ablation is stress test is N * . Review of Systems - Medications/Allergies Allergies/Adverse Reactions: Allergies Allergy/AdvReac Type Severity Reaction Status Date / Time codeine Allergy Intermediate Verified 10/18/18 14:27 Medications: Current Medications Acetaminophen (Tylenol) 650 mg PO Q4H PRN PRN Reason: Headache/Fever/Mild Pain (1-3) Apixaban (Eliquis) 5 mg PO BID [facility] Last Admin: 10/21/18 12:01 Dose: 5 mg Famotidine (Pepcid) 20 mg PO BID [facility] Last Admin: 10/21/18 12:01 Dose: 20 mg Flecainide Acetate (Tambocor) 100 mg PO Q12HR [facility] Last Admin: 10/21/18 12:01 Dose: 100 mg Furosemide (Lasix) 40 mg PO 0900,1400 [facility] Last Admin: 10/21/18 12:02 Dose: 40 mg Guaifenesin/Dextromethorphan (Robitussin Dm) 15 ml PO Q4H PRN PRN Reason: Cough Diltiazem HCl 125 mg/Miscellaneous Medication 1 each/ Sodium Chloride 125 mls @ 10 mls/hr IVPB INF [facility]; Protocol Lisinopril (Zestril) 20 mg PO DAILY [facility] Last Admin: 10/21/18 12:02 Dose: 20 mg Metoprolol Tartrate (Lopressor) 100 mg PO BID [facility] Last Admin: 10/21/18 12:02 Dose: 100 mg Sodium Chloride (Flush - Normal Saline) 10 ml IVF PRN PRN PRN Reason: Saline Flush Last Admin: 10/20/18 09:17 Dose: 10 ml
--- NOTE | 2018-10-21 13:31 | NM ---
RADIONUCLIDE STRESS AND REST MYOCARDIAL PERFUSION SCAN WITH CT ATTENUATION CORRECTION AND SPECT IMAGI NG LEFT VENTRICULAR WALL MOTION EVALUATION AND EJECTION FRACTION: History: Chest pain. FINDINGS: Adenosine protocol. Homogeneous uptake of radiotracer throughout the left ventricular myocardium. No focal perfusion defect or reversibility. QGS analysis of gated SPECT images shows global hypokinesis most pronounced at the septum. Ejection fraction is calculated at 39%. IMPRESSION: 1. No evidence of ischemia. 2. Depressed ejection fraction of 39% with decreased motion most pronounced at the septum. POS: [facility]
--- NOTE | 2018-10-21 14:16 | PDOC.CTH ---
Cardiology Progress Note - Objective Vital Signs Temp Pulse Resp BP BP Pulse Ox 10/21/18 12:02 136/103 H 10/21/18 12:00 96.1 F L 120 H 17 120/63 95 10/21/18 08:00 98.3 F 63 18 162/93 H 96 10/21/18 03:19 96.8 F L 107 H 19 150/77 H 95 10/21/18 02:45 94 L Weight 306 lb 10/20/18 10/21/18 10/22/18 06:59 06:59 06:59 Intake Total 900 940 Output Total 1050 2400 Balance -150 -1460 - Physical Examination General/Neuro: alert & oriented x3 Neck: no JVD present Lungs: CTA Abdomen: no HSM - Telemetry Telemetry Rhythm: SR->Afib w RVR - Labs Result Diagrams: 10/20/18 04:57 10/21/18 05:23 Troponin/CKMB Troponin I Less than 0.010 ng/mL (< 0.028) 10/18/18 13:28 - Assessment/Plan 1. Atrial fibrillation with RVR - DCCV 10/19 temporarily restored SR. Back in AF with RVR - Started flecainide 100mg PO BID 10/20/18 2. CHADS2-VASC of 1 - On eliquis for now. 3. Hypertension 4. Morbid obesity - weight loss recommended. 5. Alcohol abuse 4-5 beers daily during the week, great on weekends. -recommended stopping alcohol Discussed treatment plan and options at length with pt and his . Will use flecainide for now unless active CAD is found by Stress. Can consider DCCVafter 5 dyas oe as outpt. unless he does spontaneously convert. Continue Eliquis. Outpt follow up .
[2018-10-22 05:26] LABS: Hemoglobin 15.5 g/dL (14.0-18.0); Platelet Count 213 thou/uL (130-400)
[2018-10-22 05:45] LABS: Anion Gap 17 mmol/L (10-20); BUN (Urea Nitrogen) 17 mg/dL (8.4-25.7); Calc. Creatinine Clearance 143 mL/min (70-130); Calcium 9.5 mg/dL (7.8-10.44); Carbon Dioxide 24 mmol/L (22-29); Chloride 99 mmol/L (98-107); Estimated GFR-MDRD 70; Glucose 98 mg/dL (70-105); Potassium 4.1 mmol/L (3.5-5.1); Sodium 136 mmol/L (136-145)
[2018-10-22 08:47] VITALS: TEMP 97.4
[2018-10-22] MEDS: Famotidine 20 MG TAB PO SCH (08:48)
[2018-10-22] MEDS: Metoprolol Tartrate 100 MG TAB PO SCH (08:48)
[2018-10-22] MEDS: Flecainide 50 MG TAB PO SCH (08:48)
[2018-10-22] MEDS: Apixaban 5 MG TAB PO SCH (08:48)
[2018-10-22] MEDS: Lisinopril 20 MG TAB PO SCH (08:48)
[2018-10-22] MEDS: Furosemide 40 MG TAB PO SCH (08:48)
[2018-10-22 08:52] VITALS: BP 170/103
--- NOTE | 2018-10-22 17:49 | DIS ---
DATE OF ADMISSION: 10/18/2018 DATE OF DISCHARGE: 10/22/2018 PRIMARY CARE PHYSICIAN: James Montez M.D. DISCHARGE MEDICATIONS: As follows, 1. Lisinopril 20 mg daily. 2. Lopressor tartrate 100 mg p.o. b.i.d. Please note that this has been changed from metoprolol suc cinate 100 mg p.o. b.i.d. 3. Lasix 40 mg p.o. b.i.d. for 7 days, then 40 mg daily. 4. Flecainide 100 mg p.o. b.i.d. 5. Aspirin 81 mg daily. 6. Eliquis 5 mg p.o. b.i.d. DISCHARGE DIAGNOSES: 1. Recurrent atrial fibrillation with rapid ventricular response, status post cardioversion and on a ntiarrhythmics. 2. Acute congestive heart failure exacerbation, acute on chronic diastolic in nature. 3. Chronic hypertension. 4. Obesity with a BMI of 42. 5. Chronic alcohol abuse. INHOUSE CONSULTATIONS: 1. Cardiology, Lolita Cornejo M.D. 2. Electrophysiology, Milo Huber M.D. PROCEDURES DONE IN THE HOSPITAL: 1. Transthoracic echocardiogram on 10/18/2018, which shows atrial fibrillation with EF of 50%-55%. 2. Transesophageal echocardiogram and DC cardioversion on 10/19/2018. 3. Nuclear medicine stress test, which shows no evidence of ischemia, but the EF is depressed at 39% here. He has decreased motion at the septum. HISTORY OF PRESENTING ILLNESS: Mr. Arriola is a pleasant 58-year-old male with past medical histor y of hypertension, obesity and GERD who presented to the emergency room with complaints of shortness of breath of few days' duration without chest pain, palpitation, orthopnea or PND. He was found to b e in atrial fibrillation with RVR in the emergency room requiring IV Cardizem. He was admitted on Ca rdizem drip to telemetry unit. He was otherwise hemodynamically stable upon presentation. Please se e admission history and physical for further detail. He did have evidence of acute congestive heart failure with a BNP of 801 and chest x-ray consistent with vascular congestion. PE was ruled out with a CT angio of the chest. HOSPITAL COURSE: Echocardiogram was done immediately after admission, which showed diastolic dysfunc tion. He was started and continued on diuresis. Cardiology was consulted and Dr. Cornejo saw the patie nt. She recommended transesophageal echo with DC cardioversion, which was done successfully. Unfortunately, the patient went back into atrial fibrillation shortly after the DC cardioversion. A stress test was ordered and it was found to be negative, but the EF in the stress test was lower than the EF estimated by the echocardiogram. Electrophysiology, Dr. Huber was consulted because of recurr ent atrial fibrillation after cardioversion. He recommended starting him on antiarrhythmic with flec ainide and anticoagulation. He was started on flecainide and reverted back to sinus rhythm and maint ained the sinus rhythm. His metoprolol succinate, which he was taking twice a day was changed to met oprolol tartrate twice a day for rate control. By the time of discharge, he is maintaining his sinus rhythm and his heart rate is controlled. He has been cleared for discharge by Cardiology and Electr ophysiology and is hemodynamically stable. He was seen and examined prior to discharge by myself this morning. He denies any complaints and fee ls well. PHYSICAL EXAMINATION: VITAL SIGNS: This morning, temperature 97.4, pulse of 62, respirations 17, saturating 96% on room ai r, blood pressure 170/102. GENERAL: No acute distress, awake, alert, oriented x3. is at bedside. CHEST: Clear to auscultation bilaterally. Rate and rhythm is regular. The patient is instructed to follow up with Cardiology and Electrophysiology in the outpatient [facility]. He has been set up with outpatient cardiac rehabilitation as well. He will also follow up with h is primary care physician on 11/04/2018 at 09:30 in the morning. His appointment with Dr. Cornejo is on 10/29/2018 at 08:30 a.m. Please note that the patient's dose of Lasix might need to be readjusted. At this time, he is being discharged on Lasix 40 mg twice a day, which might be too much for him. We will defer the decision t o Dr. Cornejo at this time. Total time spent in the discharge of this patient, 35 minutes.
--- NOTE | 2018-10-23 13:50 | PQF ---
[employer] KaylaZJOSEMANUEL ROMERO RICHA MD [id number] CLINICAL DOCUMENTATION CLARIFICATION FORM: POST DISCHARGE Please check appropriate box(s): Conflicting documentation was noted in the Medical Record, please clarify if patient is being treated/monitored for: Documentation of both acute diastolic congestive heart failure and acute on chronic diastolic heart failure are documented in the medical record.Please clarify if patient is being treated/monitored for: [ ] Acute Diastolic Congestive Heart Failure [ ] Acute on Chronic Diastolic Heart Failure [ ] Other diagnosis [ ] Unable to determine CLINICAL INDICATORS - SIGNS / SYMPTOMS/ LABS 10/18 labs, BNP 801 10/18 chest xray "consistent with vasculare congestion" RISK FACTORS A-FIB TREATMENT Lasix 40 mg IV 10/18 MAR Orders for Echo with 2D Doppler for LV functions (This form is maintained as a part of the permanent medical record) 2014 [employer]. All Rights Reserved Cheryl [email or web address] [phone] MTDD
== END 2018-10-22 11:15 | disposition home or self-care (01) | DRG 292 ==
LOC: ERS 09:33 → 2NO 10:15
PROVIDERS: ADMIT Internal Medicine; ATTEND Internal Medicine
PROC: 5A2204Z Restoration of Cardiac Rhythm, Single (ICD-10-PCS; principal; 2018-10-19)
DX: I11.0 Hypertensive heart disease with heart failure (principal); Z68.41 Body mass index [BMI] 40.0-44.9, adult; I50.33 Acute on chronic diastolic (congestive) heart failure; E66.01 Morbid (severe) obesity due to excess calories; I48.91 Unspecified atrial fibrillation; K21.9 Gastro-esophageal reflux disease without esophagitis; F10.10 Alcohol abuse, uncomplicated; Z72.0 Tobacco use; Z79.82 Long term (current) use of aspirin; Z88.8 Allergy status to other drugs, medicaments and biological substances
CPT/HCPCS: 36415; 78452; 80048; 80061; 82274; 82607; 82746; 83036; 84443; 84550; 85014; 85018; 85025; 85049; 85610; 85730; 92960; 93017; 93306; 93312; 93798; 99285; A9500; J0153; J0461; J1650; J1940; J2250; J2704; J7050